=== PATIENT | male | born 1970 | race Caucasian/White ===

== ENCOUNTER 2025-03-14 10:25 | Outpatient (CLI) | payer OTHER, SELFPAY ==
--- NOTE | ~2025-03-14 | MR_ITS ---
EXAMINATION: MR shoulder RT wo con DATE: 03/14/2025 10:58 INDICATION: Right shoulder pain TECHNIQUE: Magnetic resonance imaging (MRI) of the right shoulder was performed without intravenous c ontrast. Sequences included axial PD-weighted FS FSE, coronal oblique PD-weighted FS FSE, coronal obl ique T2-weighted FS FSE, sagittal PD-weighted FS FSE, and sagittal T1-weighted SE. COMPARISON: None. FINDINGS: Coracoacromial arch: The acromion undersurface is curved in morphology (type II) with small infiltrate directed subacromia l spurs. Foci of susceptibility artifact along the anterior margin of the acromion which suggests pos sible prior acromioplasty. Severe acromioclavicular osteoarthritis. Rotator cuff: There are postoperative changes with suture anchors along the greater tuberosity consistent with prio r rotator cuff tear at the insertion of the supraspinatus and infraspinatus tendons. There is a recur rent full-thickness tear of the posterior supraspinatus and anterior infraspinatus tendons with media l retraction from the greater tuberosity footplate. The tear defect measures 2.5 cm AP and 2 cm media l to lateral. The teres minor tendon is normal. Mild subscapularis tendinopathy without tear. Mild william praspinatus and infraspinatus muscle belly atrophy. Biceps tendon, glenoid labrum and glenohumeral cartilage: Long head of the biceps tendon is normal. Glenoid labrum is normal. Mild partial-thickness cartilage loss with smooth chondral surface and without degenerative subchondral changes at the inferomedial as pect of the humeral head and at the cephalad glenoid. Fluid: Small glenohumeral joint effusion which extends to the full-thickness rotator cuff tear to communicat e with small amount of fluid in the subacromial/subdeltoid bursa. No loose osteochondral bodies. Bones: Normal marrow signal with no fracture or pathologic marrow replacing process. There is mild cystic ch kia at the lesser tuberosity consistent with chronic rotator cuff disease. IMPRESSION: 1. Status post prior supraspinatus and infraspinatus tendon repair with recurrent full-thickness tear centered at the conjoined portion of the tendons. 2. Mild right glenohumeral and severe acromioclavicular osteoarthritis. Reviewed, dictated and finalized at location A. IMPRESSION: 1. Status post prior supraspinatus and infraspinatus tendon repair with recurre nt full-thickness tear centered at the conjoined portion of the tendons. 2. Mild right glenohumeral and severe acromioclavicular osteoarthritis.
== END 2025-03-14 10:26 | disposition home or self-care (01) ==
LOC: MICIMG 10:27
PROVIDERS: PCP Physician Assistant Surgical; Visit Provider Physician Assistant Surgical
DX: M19.011 Primary osteoarthritis, right shoulder (principal)
CPT/HCPCS: 73221

== ENCOUNTER 2025-05-17 08:27 | Outpatient (CLI) | payer OTHER, SELFPAY ==
--- NOTE | ~2025-05-17 | MR_ITS ---
EXAMINATION: MR shoulder LT wo con DATE: 05/17/2025 09:00 INDICATION: Left shoulder pain TECHNIQUE: Magnetic resonance imaging (MRI) of the left shoulder was performed without intravenous co ntrast. Sequences included axial PD-weighted FS FSE, coronal oblique PD-weighted FS FSE, coronal obli que T2-weighted FS FSE, sagittal PD-weighted FS FSE, and sagittal T1-weighted SE. COMPARISON: None. FINDINGS: Coracoacromial arch: The acromion undersurface is flat in morphology (type I) with small lateral subacromial spur. Postope rative changes with multiple foci of susceptibility artifact along the anterolateral margin of the ac romion, likely for obtaining exposure for an open rotator cuff repair appears be further detailed bel ow. There is upsloping of the anterior most margin of the acromion with thickening of portions of the acromial side of the coracoacromial ligament suggesting a possible limited acromioplasty. Moderate a cromioclavicular osteoarthritis. Rotator cuff: There are suture anchors along the superior and middle facets of the greater tuberosity consistent wi th prior supraspinatus and infraspinatus tendon rotator cuff repair. There is mild to moderate residu al tendinopathy with recurrent full-thickness tear at the middle facet footplate of the conjoined por tion of the supraspinatus and infraspinatus tendons. The fluid-filled tear defect measures 1.6 cm AP and 1.4 cm medial to lateral. There appears to be further medial retraction of up to 2.5 cm along the articular side of the tear. Mild subscapularis tendinopathy without tear. The teres minor tendon is normal. Normal rotator cuff muscle bulk and signal. Biceps tendon, glenoid labrum and glenohumeral cartilage: And mild tendinopathy and longitudinal split tearing of the intra and extra articular portion of the long head biceps tendon. Irregular degenerative tearing of the superior glenoid labrum beginning ante riorly at the 12:30 position extending posteriorly to 10:30 position. Glenohumeral cartilage is go l. Fluid: Physiologic amount of fluid in the long head biceps tendon sheath. No significant glenohumeral joint effusion with joint fluid extending through the full-thickness rotator cuff tear defect to indicate with a small amount of fluid in the subacromial/subdeltoid bursa. Bones: Bone alignment is normal. No fracture or pathologic marrow replacing process. IMPRESSION: 1. Postoperative change of prior supraspinatus and infraspinatus tendon rotator cuff repair with recu rrent small full-thickness tear at the conjoined portion of the tendon. 2. SLAP tear at the superior to posterior superior glenoid labrum. 3. Moderate acromioclavicular osteoarthritis. 4. Mild tendinopathy and longitudinal split tearing of the intra-articular and extra-articular portio n of the long head biceps tendon. Reviewed, dictated and finalized at location A. IMPRESSION: 1. Postoperative change of prior supraspinatus and infraspinatus tendon rotator cuff repair with recurrent small full-thickness tear at the conjoined portion of the tendon. 2. SLAP tear at the superior to posterior superior glenoid labrum. 3. Moderate acromioclavicular osteoarthritis. 4. Mild tendinopathy and longitudinal split tearing of the intra-articular and extra-articular portion of the long head biceps tendon.
== END 2025-05-17 08:28 | disposition home or self-care (01) ==
LOC: MICIMG 08:28
PROVIDERS: PCP Orthopaedic Surgery; Visit Provider Orthopaedic Surgery
DX: M75.102 Unspecified rotator cuff tear or rupture of left shoulder, not specified as traumatic (principal); M19.012 Primary osteoarthritis, left shoulder
CPT/HCPCS: 73221